=== PATIENT | male | born 1955 | race Caucasian/White ===

== ENCOUNTER → 2018-09-20 08:51 | Outpatient (CLI) | payer OTHER, SELFPAY ==
[2018-09-20 09:37] LABS: Add Manual Diff / Slide Review NO; Basophils Percent Auto 0.5 % (0-2); Eosinophils Percent Auto 5.3 % (2-4); Hematocrit 42.5 % (41-53); Hemoglobin 14.2 g/dL (13.5-17.5); Lymphocytes Percent Auto 22.6 % (25-40); Mean Corpuscular HGB Conc 33.4 % (30-36); Mean Corpuscular Hemoglobin 31.1 PG (26-34); Mean Corpuscular Volume 92.9 fL (80-100); Monocytes Percent Auto 9.6 % (3-14); Neutrophils Absolute Auto 3400 /uL (3000-5900); Platelet Count 234 X10^3/uL (150-400); Red Blood Cell Count 4.57 X10^6/uL (4.5-5.9); Red Cell Distribution Width 13.5 % (11.6-14.8); White Blood Cell Count 5.6 X10^3/uL (4.5-11.0)
--- NOTE | 2018-09-20 09:45 | DI.RAD.S_ITS ---
PROCEDURE: XR SHOULDER RT MIN 2V INDICATIONS: pain TECHNIQUE: 3 views of the shoulder were acquired. COMPARISON: None. FINDINGS: Bones: No fractures or dislocations. No suspicious bony lesions. Visualized ribs appear intact. Soft tissues: No suspicious soft tissue calcifications. IMPRESSION: No acute radiographic findings. If there is continued pain, followup exam or additional imaging such as MRI or CT could be performed for further assessment. Dictated by: Nickie Young M.D. on 09/20/2018 at 10:30 Approved by: Nickie Young M.D. on 09/20/2018 at 10:30
[2018-09-20 10:01] LABS: Alanine Aminotransferase 27 IU/L (21-72); Albumin 4.1 g/dL (3.5-5.0); Albumin Globulin Ratio 1.8 (1.0-2.8); Alkaline Phosphatase 37 U/L (38-126); Aspartate Aminotransferase 20 IU/L (17-59); BUN Creatinine Ratio 14.4 (6-22); Bilirubin Total 0.8 mg/dL (0.2-1.3); Blood Urea Nitrogen 13 mg/dL (9-20); Calcium 8.8 mg/dL (8.4-10.2); Carbon Dioxide 28 mmol/L (22-32); Chloride 104 mmol/L (98-107); Cholesterol 203 mg/dL (140-199); Estimated Glomerular Filt Rate > 60.0 mL/min (>60); Globulin 2.3 g/dL (1.7-4.1); Glucose 98 mg/dL (80-110); HDL Cholesterol 65 mg/dL (40-60); HEMOLYSIS < 15 (0-50); LDL Cholesterol Calculated 128 mg/dL (<100); Potassium 4.7 mmol/L (3.4-5.1); Sodium 141 mmol/L (137-145); Total Protein 6.4 g/dL (6.3-8.2); Triglycerides 48 mg/dL (35-150)
[2018-09-20 10:26] LABS: Prostate Specific Antigen Scrn 1.49 ng/mL (0.1-4.0); Thyroid Stimulating Hormone 0.91 uIU/mL (0.47-4.68)
== END ==
PROVIDERS: Family Provider Family Medicine; PCP Family Medicine; Visit Provider Family Medicine
DX: R05 Cough (principal); M25.519 Pain in unspecified shoulder
CPT/HCPCS: 36415; 73030; 80053; 80061; 84443; 85025; G0103

== ENCOUNTER → 2019-09-04 16:20 | Outpatient (CLI) | payer OTHER, SELFPAY ==
[2019-09-04 16:57] LABS: Add Manual Diff / Slide Review NO; Basophils Absolute Auto 0 /uL (0-100); Basophils Percent Auto 0.5 % (0-2); Eosinophils Absolute Auto 100 /uL (0-450); Eosinophils Percent Auto 1.2 % (2-4); Hematocrit 40.1 % (41-53); Hemoglobin 13.5 g/dL (13.5-17.5); Lymphocytes Absolute Auto 1300 /uL (1100-4500); Lymphocytes Percent Auto 16.1 % (25-40); Mean Corpuscular HGB Conc 33.7 % (30-36); Mean Corpuscular Hemoglobin 31.6 PG (26-34); Mean Corpuscular Volume 93.7 fL (80-100); Monocytes Absolute Auto 700 /uL (0-900); Monocytes Percent Auto 8.6 % (3-14); Neutrophils Absolute Auto 6000 /uL (1500-7000); Neutrophils Percent Auto 73.6 % (50-75); Platelet Count 226 X10^3/uL (150-400); Red Blood Cell Count 4.28 X10^6/uL (4.5-5.9); Red Cell Distribution Width 13.6 % (11.6-14.8); White Blood Cell Count 8.2 X10^3/uL (4.5-11.0)
[2019-09-04 17:09] LABS: Alanine Aminotransferase 27 IU/L (<50); Albumin 4.3 g/dL (3.5-5.0); Albumin Globulin Ratio 1.6 (1.0-2.8); Alkaline Phosphatase 46 U/L (38-126); Aspartate Aminotransferase 29 IU/L (17-59); BUN Creatinine Ratio 17.8 (6-22); Bilirubin Total 1.3 mg/dL (0.2-1.3); Blood Urea Nitrogen 16 mg/dL (9-20); Calcium 9.1 mg/dL (8.4-10.2); Carbon Dioxide 32 mmol/L (22-32); Chloride 100 mmol/L (98-107); Estimated Glomerular Filt Rate > 60.0 mL/min (>60); Globulin 2.7 g/dL (1.7-4.1); Glucose 121 mg/dL (80-110); HEMOLYSIS < 15 (0-50); Potassium 4.2 mmol/L (3.4-5.1); Sodium 137 mmol/L (137-145)
== END ==
PROVIDERS: Family Provider Family Medicine; PCP Family Medicine; Visit Provider Nurse Practitioner
DX: K92.1 Melena (principal)
CPT/HCPCS: 36415; 80053; 85025

== ENCOUNTER → 2019-09-06 08:57 | Outpatient (CLI) | payer OTHER, SELFPAY ==
[2019-09-06 09:32] LABS: Add Manual Diff / Slide Review NO; Basophils Absolute Auto 0 /uL (0-100); Basophils Percent Auto 0.5 % (0-2); Eosinophils Absolute Auto 200 /uL (0-450); Eosinophils Percent Auto 3.4 % (2-4); Hematocrit 39.7 % (41-53); Hemoglobin 13.8 g/dL (13.5-17.5); Lymphocytes Absolute Auto 1200 /uL (1100-4500); Lymphocytes Percent Auto 20.5 % (25-40); Mean Corpuscular HGB Conc 34.7 % (30-36); Mean Corpuscular Hemoglobin 32.3 PG (26-34); Monocytes Absolute Auto 600 /uL (0-900); Monocytes Percent Auto 9.4 % (3-14); Neutrophils Absolute Auto 4000 /uL (1500-7000); Neutrophils Percent Auto 66.2 % (50-75); Platelet Count 248 X10^3/uL (150-400); Red Blood Cell Count 4.27 X10^6/uL (4.5-5.9); Red Cell Distribution Width 13.8 % (11.6-14.8)
[2019-09-06 10:17] LABS: Alanine Aminotransferase 27 IU/L (<50); Albumin 4.3 g/dL (3.5-5.0); Albumin Globulin Ratio 1.9 (1.0-2.8); Alkaline Phosphatase 55 U/L (38-126); Aspartate Aminotransferase 29 IU/L (17-59); BUN Creatinine Ratio 17.8 (6-22); Bilirubin Total 1.1 mg/dL (0.2-1.3); Blood Urea Nitrogen 16 mg/dL (9-20); Calcium 9.2 mg/dL (8.4-10.2); Carbon Dioxide 29 mmol/L (22-32); Chloride 101 mmol/L (98-107); Cholesterol 219 mg/dL (140-199); Estimated Glomerular Filt Rate > 60.0 mL/min (>60); Globulin 2.3 g/dL (1.7-4.1); Glucose 103 mg/dL (80-110); HDL Cholesterol 65 mg/dL (40-60); HEMOLYSIS < 15 (0-50); LDL Cholesterol Calculated 143 mg/dL (<100); Potassium 4.2 mmol/L (3.4-5.1); Sodium 137 mmol/L (137-145); Total Protein 6.6 g/dL (6.3-8.2); Triglycerides 55 mg/dL (35-150)
== END ==
PROVIDERS: PCP Family Medicine; Visit Provider Nurse Practitioner
DX: Z00.00 Encounter for general adult medical examination without abnormal findings (principal); Z13.220 Encounter for screening for lipoid disorders; K92.1 Melena
CPT/HCPCS: 36415; 80053; 80061; 85025; 87045; 87899

== ENCOUNTER 2019-11-02 20:24 | Emergency (ER) | payer OTHER, SELFPAY ==
[2019-11-02 20:37] VITALS: BP 123/69; PULSE 68; RESP 18; TEMP 36.6; O2SAT 97
--- NOTE | 2019-11-02 21:59 | ED_ITS ---
HPI - Allergic Reaction General Chief complaint: Allergic Reaction Stated complaint: rash in pits and other parts of body Time Seen by Provider: 11/02/19 20:35 Source: patient Mode of arrival: Ambulatory Limitations: no limitations History of Present Illness HPI narrative: 64-year-old male nonsmoker with noncontributory medical history presents with a chief complaint of a fairly sudden onset itchy rash on his arms and in his bilateral axillas with some urticaria. He denies any other symptoms such as swelling of tongue, lips or throat. No difficulty swallowing, speaking or any trouble breathing. He denies any history of the same. He has taken no medications to help. He denies any known or suspected triggers such as new food, medications, pets, lotions or other. MD complaint: allergic reaction and hives Onset (ago): hour(s) Exposure: unknown Symptoms: rash and itching Severity: mild Treatment prior to arrival: none Previous Allergic Reaction History: none Related Data Home Medications Medication Instructions Recorded Confirmed ibuprofen 600 mg PO TID #0 11/02/17 09/13/19 Previous Rx's Medication Instructions Recorded prednisone 40 mg PO DAILY 4 Days tab 11/02/19 Allergies Allergy/AdvReac Type Severity Reaction Status Date / Time bee venom protein (honey bee) Allergy Intermediate swelling/hi Verified 09/13/19 15:29 ves Review of Systems Constitutional Constitutional: Denies chills, Denies fatigue, Denies fever(s), Denies frequent falls, Denies lethargy and Denies weakness Eyes Eyes: Denies change in vision, Denies eye discharge, Denies irritation and Denies loss of vision ENT Ears, Nose, Mouth, and Throat: Denies change in voice, Denies dizziness, Denies neck pain, Denies sore throat and Denies throat swelling Cardiovascular Cardiovascular: Denies chest pain, Denies irregular heart rhythm, Denies lightheadedness, Denies palpitations, Denies dyspnea, Denies dyspnea on exertion and Denies orthopnea Respiratory Respiratory: Denies cough, Denies dyspnea, Denies dyspnea on exertion and Denies wheezing Gastrointestinal Gastrointestinal: Denies abdominal pain, Denies change in bowel habits, Denies diarrhea, Denies nausea and Denies vomiting Genitourinary Genitourinary: Denies hematuria, Denies flank pain, Denies urinary incontinence and Denies urinary urgency Musculoskeletal Musculoskeletal: Denies back pain, Denies muscle weakness, Denies neck pain, Denies numbness and Denies tingling Integumentary/Breasts Skin/Breast: Reports pruritus, Denies erythema, Reports rash and Denies wounds Neurologic Neurologic: Denies behavioral changes, Denies confusion, Denies dizziness, Denies frequent falls, Denies loss of vision, Denies numbness, Denies tingling and Denies weakness Psychiatric Psychiatric: Denies anxiety, Denies behavioral changes, Denies confusion, Denies depression, Denies homicidal ideation and Denies suicidal ideation Endocrine Endocrine: Denies fatigue, Denies flushing and Denies palpitations Hematologic/Lymphatic Hematologic/Lymphatic: Denies easy bruising Allergic/Immunologic Allergic/Immunologic: Denies urticaria, Denies throat swelling and Denies wheezing Patient History Medical History Colon polyps (Resolved 06/17/15) Diverticulosis of sigmoid colon (Chronic 06/17/15) Surgical History History of colonoscopy with polypectomy (Resolved 06/17/15) Social History Smoking Status: Former smoker Smoking Status: Former smoker alcohol intake frequency: holidays/special occasions only Substance Use Type: marijuana Exam Narrative Exam Narrative: GENERAL: [64] year old patient appears stated age. Well- nourished, well-developed patient, in mild distress. HEAD: Atraumatic. Normocephalic. EYES: Pupils equal round and reactive. Extraocular motions intact. No scleral icterus. No injection or drainage. ENT: Nose without bleeding, purulent drainage. Throat without erythema, tonsillar hypertrophy or exudate. Airway patent, no swelling of lips/tongue etc. NECK: Trachea midline. Non tender CARDIOVASCULAR: Regular rate and rhythm without murmurs, gallops, or rubs. RESPIRATORY: Clear to auscultation. Breath sounds equal bilaterally. No wheezes, rales, or rhonchi. GASTROINTESTINAL: Abdomen soft, non-tender, nondistended. EXTREMITIES: No edema or joint tenderness. BACK: Nontender without deformity or crepitance. No flank tenderness. NEURO: AOx3. SKIN: hives on arms and axilla B/L, seems to spare trunk, neck, face, and lower extremities. Initial Vital Signs Initial Vital Signs: Vital Signs Temperature 97.9 F 11/02/19 20:37 Pulse Rate 68 11/02/19 20:37 Respiratory Rate 18 11/02/19 20:37 Blood Pressure 123/69 11/02/19 20:37 Pulse Oximetry 97 11/02/19 20:37 Course Orders Ordered: Discontinued Medications Prednisone (Deltasone) 40 mg PO NOW ONE Stop: 11/02/19 22:33 Last Admin: 11/02/19 22:40 Dose: 40 mg Documented by: SEAN Vital Signs Vital signs: Vital Signs - 8 hr 11/02/19 20:37 11/02/19 23:00 Temperature 97.9 F Pulse Rate 68 52 L Respiratory Rate 18 17 Blood Pressure 123/69 129/76 Pulse Oximetry 97 96 MDM - Allergic Reaction MDM Narrative Medical decision making narrative: Nonspecific allergic reaction with unknown trigger. No airway compromise or swelling of face, lips or tongue. Reassuring exam and stable vitals. Patient given 5 day course of prednisone and encouraged to go directly from here to [facility] to get H1 and H2 blockers (refused here). Patient and understand and agree with plan. Return precautions given and questions answered to their apparent satisfaction Discharge Plan Departure Patient Disposition: Home Clinical Impression: Allergic reaction Qualifiers: Encounter type: initial encounter Qualified Code(s): T78.40XA - Allergy, unspecified, initial encounter Discharge Date/Time: 11/02/19 23:01 Instructions: DI for General Allergic Reactions Activity Restrictions/Additional Instructions: *You have been diagnosed with [generalized allergic reaction ] *What to do: *Take medications as directed: your prescription for Prednisone was electronically submitted to [facility] in [place] at your request. Also, please get over the counter histamines including Benadryl, Zyrtec, or Emelyn. As well as an H2 sugar like Pepcid or Zantac. *Follow up with your primary care provider in 2-3 days, call for an appointment. Let them know you were seen in the Emergency Department and that we ask that you be seen in follow up *Return to ER if you should have any new, worsening or concerning symptoms Prescriptions: New prednisone 20 mg tablet 40 mg PO DAILY 4 Days RF: 0 No Action ibuprofen 600 MG tablet 600 mg PO TID Qty: 0 RF: 0 Referrals: Beni Gomez MD [Primary Care Provider] -
[2019-11-02] MEDS: predniSONE 20 MG TABLET 40 MG PO (22:40)
[2019-11-02 23:00] VITALS: BP 129/76; PULSE 52; RESP 17; O2SAT 96
== END 2019-11-02 23:01 | disposition home or self-care (01) ==
PROVIDERS: Emergency Provider Emergency Medicine; PCP Family Medicine
DX: T78.40XA Allergy, unspecified, initial encounter (principal)
CPT/HCPCS: 99282; 99283

== ENCOUNTER 2019-11-05 16:20 | Emergency (ER) | payer OTHER, SELFPAY ==
[2019-11-05 16:45] VITALS: BP 146/75; PULSE 57; RESP 16; TEMP 36.4; O2SAT 97
--- NOTE | 2019-11-05 16:54 | PC.NURSE ---
1620 patient checking in, airway clear, maintaining secretions. does not appear in distress.
[2019-11-05] MEDS: diphenhydrAMINE 25 MG TABLET 50 MG PO (17:31)
[2019-11-05 18:32] VITALS: BP 142/68; PULSE 58; RESP 16; O2SAT 100
--- NOTE | 2019-11-05 18:53 | ED_ITS ---
HPI - Allergic Reaction <ROLANDO Lozano - Last Filed: 11/05/19 19:20> General Chief complaint: Allergic Reaction Stated complaint: THROAT IS GETTING THIGHT HARD TO SWALLOW Time Seen by Provider: 11/05/19 17:12 Source: patient Mode of arrival: Ambulatory Limitations: no limitations History of Present Illness HPI narrative: The patient is a 64-year-old male former smoker with history of hives who presents with a chief complaint of difficulty swallowing. He states that he recently had a breakfast sandwich that he thinks he is allergic to. Incidentally he had the same back for sandwich on Tuesday when he came to the emergency department with hives. He denies any current hives, shortness of breath, swelling of his lips face or tongue or dizziness. He states that he has a tickle in his throat, and feels as though it might be hard to swallow. He has been taking his prednisone, in addition he has been taking Benadryl 50 mg q.4 hours as well as Pepcid Q 4 hours Related Data Home Medications Medication Instructions Recorded Confirmed diphenhydramine HCl 1 cap PO PRN PRN 11/05/19 11/05/19 famotidine 1 tab PO PRN PRN 11/05/19 11/05/19 Previous Rx's Medication Instructions Recorded prednisone 40 mg PO DAILY 4 Days tab 11/02/19 Allergies Allergy/AdvReac Type Severity Reaction Status Date / Time bee venom protein (honey bee) Allergy Intermediate swelling/hi Verified 09/13/19 15:29 ves Review of Systems <ROLANDO Lozano - Last Filed: 11/05/19 19:20> Review of Systems Narrative: GENERAL: Denies chills, fatigue, malaise, fever, sweats. HEENT: See HPI RESPIRATORY: See HPI CARDIOVASCULAR: Denies chest pain, palpitations, orthopnea, edema, GASTROINTESTINAL: Denies nausea, vomiting, abdominal pain, diarrhea, constipation, melena. : Denies dysuria, frequency, incontinence, hematuria, urinary retention. MUSCULOSKELETAL: denies weakness, joint pain, or bony pain SKIN: Denies rash, skin lesions, or other NEUROLOGIC: Denies weakness, headache, numbness, change in speech, confusion, seizures, incoordination. PSYCHIATRIC: No concerning psychosocial issues. 12 point review of systems is negative except for those stated above Patient History <ROLANDO Lozano - Last Filed: 11/05/19 19:20> Medical History Colon polyps (Resolved 06/17/15) Diverticulosis of sigmoid colon (Chronic 06/17/15) Surgical History History of colonoscopy with polypectomy (Resolved 06/17/15) Social History Smoking Status: Former smoker Smoking Status: Former smoker alcohol intake frequency: holidays/special occasions only Substance Use Type: marijuana Exam <ROLNADO Lozano - Last Filed: 11/05/19 19:20> Narrative Exam Narrative: GENERAL: This is a well-nourished, well-developed patient, in no acute distress HEAD: Atraumatic. Normocephalic. No temporal or scalp tenderness. EYES: Pupils equal round and reactive. Extraocular motions intact. No scleral icterus. No injection or drainage. ENT: Nose without bleeding, purulent drainage or septal hematoma. Throat without erythema, tonsillar hypertrophy or exudate. Uvula midline. Airway patent. No swelling of the lips face or tongue. NECK: Trachea midline. No JVD or lymphadenopathy. Supple, nontender, no meningeal signs. CARDIOVASCULAR: Regular rate and rhythm RESPIRATORY: Clear to auscultation. Breath sounds equal bilaterally. No wheezes, rales, or rhonchi. No increased respiratory effort. No accessory muscle use. Speaking full sentences. EXTREMITIES: No clubbing, cyanosis, or edema. No joint tenderness, effusion, or edema noted. BACK: Nontender without deformity or crepitance. No flank tenderness. NEURO: AOx3. SKIN: No rash or erythema on visible skin Initial Vital Signs Initial Vital Signs: Vital Signs Temperature 97.6 F 11/05/19 16:45 Pulse Rate 57 L 11/05/19 16:45 Respiratory Rate 16 11/05/19 16:45 Blood Pressure 146/75 H 11/05/19 16:45 Pulse Oximetry 97 11/05/19 16:45 <Zulma Ruiz MD - Last Filed: 11/05/19 20:05> Initial Vital Signs Initial Vital Signs: Vital Signs Temperature 97.6 F 11/05/19 16:45 Pulse Rate 57 L 11/05/19 16:45 Respiratory Rate 16 11/05/19 16:45 Blood Pressure 146/75 H 11/05/19 16:45 Pulse Oximetry 97 11/05/19 16:45 Course <ROLANDO Lozano - Last Filed: 11/05/19 19:20> Orders Ordered: Discontinued Medications Diphenhydramine HCl (Benadryl) 50 mg PO NOW ONE Stop: 11/05/19 17:26 Last Admin: 11/05/19 17:31 Dose: 50 mg Documented by: CHIVO Vital Signs Vital signs: Vital Signs - 8 hr 11/05/19 16:45 11/05/19 18:32 Temperature 97.6 F Pulse Rate 57 L 58 L Respiratory Rate 16 16 Blood Pressure 146/75 H Blood Pressure [Right Arm] 142/68 H Pulse Oximetry 97 100 <Zulma uRiz MD - Last Filed: 11/05/19 20:05> Orders Ordered: Discontinued Medications Diphenhydramine HCl (Benadryl) 50 mg PO NOW ONE Stop: 11/05/19 17:26 Last Admin: 11/05/19 17:31 Dose: 50 mg Documented by: CHIVO Vital Signs Vital signs: Vital Signs - 8 hr 11/05/19 16:45 11/05/19 18:32 Temperature 97.6 F Pulse Rate 57 L 58 L Respiratory Rate 16 16 Blood Pressure 146/75 H Blood Pressure [Right Arm] 142/68 H Pulse Oximetry 97 100 MDM - Allergic Reaction <ROLANDO Lozano - Last Filed: 11/05/19 19:20> MDM Narrative Medical decision making narrative: The patient is a 64-year-old male who presents with a chief complaint of concern for an allergic reaction. He was h ere on Tuesday diagnosed with hives. He ate the same type of breakfast sandwich today as he did on Tuesday, and felt like he had trouble swallowing. He is given a single dose of Benadryl, and states he feels much improved. He has no signs of anaphylaxis, no signs of hives. I discussed at length continued Benadryl, reducing Pepcid to once or twice a day as needed. Encourage PCP follow-up as scheduled tomorrow. Patient was observed and felt improved ready to go home. Discussed at length the importance of following up with primary care provider, using Benadryl as needed, continuing steroid burst as previously prescribed. Patient has no questions or concerns upon discharge and states understanding of return precautions of any acute concerns as well as follow-up care. Discharge Plan Departure Patient Disposition: Home Clinical Impression: Allergic reaction Qualifiers: Encounter type: initial encounter Qualified Code(s): T78.40XA - Allergy, unspecified, initial encounter Discharge Date/Time: 11/05/19 18:53 Instructions: DI for General Allergic Reactions Activity Restrictions/Additional Instructions: As discussed, you can keep taking Benadryl as needed. Please take the Pepcid once to twice a day not every 4 hours Please come back to the emergency department for any acute concerns such as swelling of her lips face her tongue, difficulty breathing, concern of an acute allergic reaction etcetera Prescriptions: No Action prednisone 20 mg tablet 40 mg PO DAILY 4 Days RF: 0 diphenhydramine HCl 1 cap PO PRN PRN (Reason: Allergic Reaction) RF: 0 famotidine 1 tab PO PRN PRN (Reason: Allergic Reaction) RF: 0 Referrals: Beni Gomez MD [Primary Care Provider] -
== END 2019-11-05 18:53 | disposition home or self-care (01) ==
PROVIDERS: Emergency Provider Nurse Practitioner Family; PCP Family Medicine
DX: T78.40XA Allergy, unspecified, initial encounter (principal)
CPT/HCPCS: 99283

== ENCOUNTER → 2020-09-11 07:05 | Outpatient (CLI) | payer OTHER, SELFPAY ==
[2020-09-11 08:29] LABS: Add Manual Diff / Slide Review NO; Basophils Absolute Auto 0 /uL (0-100); Basophils Percent Auto 0.6 % (0-2); Eosinophils Absolute Auto 300 /uL (0-450); Eosinophils Percent Auto 4.3 % (2-4); Hematocrit 41.5 % (41-53); Hemoglobin 14.1 g/dL (13.5-17.5); Lymphocytes Absolute Auto 1400 /uL (1100-4500); Lymphocytes Percent Auto 22.6 % (25-40); Mean Corpuscular HGB Conc 33.9 % (30-36); Mean Corpuscular Hemoglobin 32.1 PG (26-34); Mean Corpuscular Volume 94.5 fL (80-100); Monocytes Absolute Auto 700 /uL (0-900); Neutrophils Absolute Auto 3700 /uL (1500-7000); Neutrophils Percent Auto 61.5 % (50-75); Platelet Count 230 X10^3/uL (150-400); Red Blood Cell Count 4.39 X10^6/uL (4.5-5.9); Red Cell Distribution Width 13.5 % (11.6-14.8)
[2020-09-11 08:33] LABS: Alanine Aminotransferase 24 IU/L (<50); Albumin 4.4 g/dL (3.5-5.0); Albumin Globulin Ratio 1.7 (1.0-2.8); Alkaline Phosphatase 37 U/L (38-126); Aspartate Aminotransferase 25 IU/L (17-59); BUN Creatinine Ratio 25.5 (6-22); Bilirubin Total 0.5 mg/dL (0.2-1.3); Blood Urea Nitrogen 26 mg/dL (9-20); Calcium 9.3 mg/dL (8.4-10.2); Carbon Dioxide 31 mmol/L (22-32); Chloride 106 mmol/L (98-107); Cholesterol 224 mg/dL (140-199); Estimated Glomerular Filt Rate > 60.0 mL/min (>60); Globulin 2.6 g/dL (1.7-4.1); Glucose 110 mg/dL (80-110); HDL Cholesterol 71 mg/dL (40-60); HEMOLYSIS < 15 (0-50); LDL Cholesterol Calculated 140 mg/dL (<100); Sodium 141 mmol/L (137-145); Triglycerides 66 mg/dL (35-150)
[2020-09-11 09:00] LABS: Prostate Specific Antigen Scrn 1.56 ng/mL (0.1-4.0)
== END ==
PROVIDERS: PCP Family Medicine; Referring Provider Family Medicine; Visit Provider Family Medicine
DX: E78.2 Mixed hyperlipidemia (principal); K57.92 Diverticulitis of intestine, part unspecified, without perforation or abscess without bleeding; Z12.5 Encounter for screening for malignant neoplasm of prostate
CPT/HCPCS: 36415; 80053; 80061; 85025; G0103

== ENCOUNTER → 2021-01-16 09:57 | Outpatient (CLI) | payer OTHER, SELFPAY ==
[2021-01-16 12:05] LABS: COVID19 -Nasal RAPID Negative (Negative)
== END ==
PROVIDERS: PCP Family Medicine; Visit Provider Surgery
DX: Z20.822 Contact with and (suspected) exposure to COVID-19 (principal)
CPT/HCPCS: 87635; C9803

== ENCOUNTER 2021-01-19 09:55 | Day surgery (SDC) | payer OTHER, SELFPAY ==
[2021-01-19] VITALS (7 sets, daily range): BP systolic 123–134; BP diastolic 64–72; PULSE 48–58; RESP 10–18; TEMP 36.4–36.7; O2SAT 95–99; BMI 22.2
--- NOTE | 2021-01-19 | PATH_ITS ---
[facility] Accession Number: [id number] . 01 Material submitted: . PART A: hernia - HERNIA SAC PART B: spermatic cord - SPERMATIC CORD LIPOMA . 02 Diagnosis: A. Hernia Sac, Hernia Repair: Portions of fibroconnective and fibroadipose tissue with a partial mesothelial lining, consistent with hernia sac. Negative for atypia or malignancy. . B. Spermatic Cord Lipoma, Hernia Sac Repair: Portions of mature fibroadipose tissue, consistent with cord lipoma (4.5 x 3.0 x 2.2 cm). MRV 01/22/2021 0933 Local . 02 Electronically signed: . Zulma Morton MD, Pathologist NPI- [id number] . 01 Gross description: . A. The specimen is received in formalin, labeled hernia sac and consists of a 2.5 x 2.0 x 2.0 cm echols-pink fibromembranous fragment of soft tissue. [employer] sections are submitted in cassette A1. B. The specimen is received in formalin, labeled spermatic cord lipoma and consists of a 4.5 x 3.0 x 2.2 cm echols-yellow fragment of adipose tissue which is inked blue and sectioned to reveal echols-yellow, lobulated cut surfaces. [employer] sections are submitted in cassettes B1-B4. (EA:[id number]) /MRV 01/21/2021 1501 Local . 02 Pathologist provided ICD-10: K40.90 . 02 CPT . 950961, [id number] Performed at: [address] [facility], [place], [place] [id number] MD Addy Castrejon MD Phone: [phone] Performed at: [facility] [address] [place] [id number] MD Nury Edwards MD Phone: [phone]
[2021-01-19] MEDS: LACTATED RINGERS 1,000 ML 100 ML IV (10:36)
--- NOTE | 2021-01-19 10:56 | PM.PREOP ---
Pre-operative Note COVID-19 COVID-19 status: Negative Result date/Date tested (Pos, Neg/Pending): 01/16/21 Interval Note History & Physical reviewed/Exam performed by Physician: Yes Changes to H&P: No
[2021-01-19] MEDS: CEFAZOLIN 2 GM/100 ML FROZ.PIGGY IV (11:06)
[2021-01-19] MEDS: BUPIVACAINE 0.25% W/ EPI (PF) 10 ML VIAL 30 ML INJ (11:30)
[2021-01-19] MEDS: BUPIVACAINE LIPOSOME 266 MG/20 ML VIAL INJ (11:31)
--- NOTE | 2021-01-19 12:20 | P.OP_ITS ---
Operative Date/Time/Diagnoses Date of procedure: 01/19/21 Time of procedure: 12:20 Pre-op diagnosis: right inguinal hernia Post-op diagnosis: same (indirect right inguinal hernia, cord lipoma) Procedure & Clinicians Procedure: Open right inguinal hernia repair with mesh, removal of spermatic cord lipoma Same procedure as scheduled: Yes Indications: Symptomatic right inguinal hernia Surgeon: Dana Elmore Yes if Unassisted: Yes Anesthesia Type: General Operative Notes Findings: Indirect right inguinal hernia, cord lipoma Specimen(s): other (hernia sac, cord lipoma) Prosthetic devices, grafts, tissues, transplants, or devices: BARD lightweight polypropelene mesh Estimated Blood Loss (mL): 1 Procedure in detail: The patient was brought into the OR, placed supine on the OR table, and appropriate preoperative antibiotics were given. Sequential compression devices were placed on both legs and turned on. General anesthesia was induced and the patient was intubated with an LMA by the anesthesiologist. The right lower abdomen and groin were prepped and draped in sterile fashion for inguinal incision. A surgical time out was conducted. Local anesthetic was infiltrated into the skin and a 15 blade was used to make an oblique 10cm incisi on two finger breadths superior to the inguinal ligament. Dissection was carried down to through the subcutaneous fat and leann's fascia. Dissection was carried down to the aponeurosis of the external oblique. Using a fresh 15 blade, I opened the aponeurosis after giving generous local anesthetic. There was a moderate indirect inguinal hernia, with an associated spermatic cord lipoma. I dissected the cord lipoma free from the cord and suture ligated it, passing it off the field. I dissected the hernia sac off of the spermatic cord, and suture ligated it with a 3-0 Vicryl. I divided the hernia sac and passed off the field. The stumps of the spermatic cord lipoma and hernia sac were dropped back into the abdomen through the indirect defect. 20 mL of Exparel, and a total of 30 mL of 0.25% Marcaine with epi were used for the entire procedure. The Exparel was infiltrated in the conjoint tendon, and pubic tubercle, avoiding the inguinal ligament shelving edge, and below. A BARD m acroporous inguinal hernia mesh was then brought into the field and shaped to fit the groin. I secured it to the ligaments overlying the pubic tubercle with 2cm overlap, and then secured it to the inguinal ligament inferiorly and the conjoint tendon superiorly with 2-0 PDS suture. I made an opening in the mesh to accommodate the spermatic cord, ensuring it was appropriately sized to avoid strangulation of the cord. Once the mesh was secure, I closed the external oblique aponeurosis with 3-0 Vicryl. I closed the Leann's fascia with 3-0 Vicryl. The remaining local anesthetic was given in the skin and soft tissue. The skin was closed with running 4-0 Monocryl subcuticular stitch. The skin edges were sealed with Dermabond. The patient was awakened from anesthesia and extubated. He tolerated the procedure well. Needle, sponge and instrument counts were correct x 2. The patient was transferred to PACU in stable condition. Complications: none Post-operative Condition: stable Disposition: PACU
[2021-01-19] MEDS: OXYCODONE/ACETAMINOPHEN 5/325 TABLET 1 TAB PO (12:42)
--- NOTE | 2021-01-19 12:50 | SUR.PHASEI ---
PRIOR TO MOVING TO PHASE 2 PT C/O DISCOMFORT, MEDICATED WITH ORAL PAIN PILL, PT TOLERATING DAVID SALAS AND CRACKERS
== END 2021-01-19 13:15 | disposition home or self-care (01) ==
PROVIDERS: PCP Family Medicine; Referring Provider Surgery; Visit Provider Surgery
PROC: (CPT 49505; principal; 2021-01-19 11:15)
DX: K40.90 Unilateral inguinal hernia, without obstruction or gangrene, not specified as recurrent (principal); F41.9 Anxiety disorder, unspecified; D17.6 Benign lipomatous neoplasm of spermatic cord
CPT/HCPCS: 49505; 82962; C1781; C9290; J0690; J1100; J2250; J2405; J2704; J3010

== ENCOUNTER → 2021-03-04 08:19 | Outpatient (CLI) | payer OTHER, SELFPAY ==
[2021-03-04] MEDS: COVID-19 VACC #1, MRNA(MOD) 100 MCG/0.5 ML VIAL IM (08:27)
== END ==
PROVIDERS: PCP Family Medicine; Visit Provider Internal Medicine
DX: Z23 Encounter for immunization (principal)
CPT/HCPCS: 0011A; 91301

== ENCOUNTER → 2021-03-20 08:24 | Outpatient (CLI) | payer OTHER, SELFPAY ==
[2021-03-20 08:59] LABS: Add Manual Diff / Slide Review NO; Basophils Absolute Auto 0 /uL (0-100); Basophils Percent Auto 0.6 % (0-2); Eosinophils Absolute Auto 200 /uL (0-450); Eosinophils Percent Auto 3.2 % (2-4); Hematocrit 42.5 % (41-53); Hemoglobin 14.2 g/dL (13.5-17.5); Lymphocytes Absolute Auto 1100 /uL (1100-4500); Lymphocytes Percent Auto 21.9 % (25-40); Mean Corpuscular HGB Conc 33.3 % (30-36); Mean Corpuscular Hemoglobin 31.2 PG (26-34); Mean Corpuscular Volume 93.6 fL (80-100); Monocytes Absolute Auto 500 /uL (0-900); Monocytes Percent Auto 10.4 % (3-14); Neutrophils Absolute Auto 3200 /uL (1500-7000); Neutrophils Percent Auto 63.9 % (50-75); Platelet Count 234 X10^3/uL (150-400); Red Blood Cell Count 4.54 X10^6/uL (4.5-5.9); Red Cell Distribution Width 13.5 % (11.6-14.8)
[2021-03-20 09:41] LABS: Alanine Aminotransferase 20 IU/L (<50); Albumin 4.2 g/dL (3.5-5.0); Albumin Globulin Ratio 1.8 (1.0-2.8); Alkaline Phosphatase 36 U/L (38-126); Aspartate Aminotransferase 24 IU/L (17-59); BUN Creatinine Ratio 22.5 (6-22); Bilirubin Total 0.9 mg/dL (0.2-1.3); Blood Urea Nitrogen 18 mg/dL (9-20); Calcium 9.3 mg/dL (8.4-10.2); Carbon Dioxide 29 mmol/L (22-32); Chloride 103 mmol/L (98-107); Cholesterol 237 mg/dL (140-199); Estimated Glomerular Filt Rate > 60.0 mL/min (>60); Globulin 2.3 g/dL (1.7-4.1); Glucose 103 mg/dL (80-110); HDL Cholesterol 74 mg/dL (40-60); HEMOLYSIS < 15 (0-50); LDL Cholesterol Calculated 152 mg/dL (<100); Potassium 4.3 mmol/L (3.4-5.1); Sodium 138 mmol/L (137-145); Total Protein 6.5 g/dL (6.3-8.2); Triglycerides 54 mg/dL (35-150)
[2021-03-20 10:09] LABS: Prostate Specific Antigen Scrn 1.51 ng/mL (0.1-4.0)
== END ==
PROVIDERS: PCP Family Medicine; Referring Provider Family Medicine; Visit Provider Family Medicine
DX: E78.2 Mixed hyperlipidemia (principal); Z12.5 Encounter for screening for malignant neoplasm of prostate
CPT/HCPCS: 36415; 80053; 80061; 85025; G0103

== ENCOUNTER → 2021-04-10 08:14 | Outpatient (CLI) | payer OTHER, SELFPAY ==
[2021-04-10] MEDS: COVID-19 VACC #2, MRNA(MOD) 100 MCG/0.5 ML VIAL IM (08:19)
== END ==
PROVIDERS: PCP Family Medicine; Visit Provider Internal Medicine
DX: Z23 Encounter for immunization (principal)
CPT/HCPCS: 0012A; 91301

== ENCOUNTER → 2022-12-17 07:15 | Outpatient (CLI) | payer MEDICARE, OTHER, SELFPAY ==
[2022-12-17 08:02] LABS: Add Manual Diff / Slide Review NO; Basophils Absolute Auto 0 /uL (0-100); Basophils Percent Auto 0.5 % (0-2); Eosinophils Absolute Auto 200 /uL (0-450); Eosinophils Percent Auto 2.5 % (2-4); Hematocrit 41.9 % (41-53); Hemoglobin 14.4 g/dL (13.5-17.5); Lymphocytes Absolute Auto 1400 /uL (1100-4500); Lymphocytes Percent Auto 20.9 % (25-40); Mean Corpuscular HGB Conc 34.4 % (30-36); Mean Corpuscular Hemoglobin 31.8 PG (26-34); Mean Corpuscular Volume 92.4 fL (80-100); Monocytes Absolute Auto 700 /uL (0-900); Neutrophils Absolute Auto 4400 /uL (1500-7000); Neutrophils Percent Auto 66.1 % (50-75); Platelet Count 310 X10^3/uL (150-400); Red Blood Cell Count 4.54 X10^6/uL (4.5-5.9); Red Cell Distribution Width 13.5 % (11.6-14.8); White Blood Cell Count 6.6 X10^3/uL (4.5-11.0)
[2022-12-17 08:11] LABS: Alanine Aminotransferase 22 IU/L (<50); Albumin 4.1 g/dL (3.5-5.0); Albumin Globulin Ratio 1.5 (1.0-2.8); Alkaline Phosphatase 41 U/L (38-126); Aspartate Aminotransferase 23 IU/L (17-59); BUN Creatinine Ratio 21.1 (6-22); Bilirubin Total 0.5 mg/dL (0.2-1.3); Blood Urea Nitrogen 19 mg/dL (9-20); Calcium 8.8 mg/dL (8.4-10.2); Carbon Dioxide 31 mmol/L (22-32); Chloride 101 mmol/L (98-107); Cholesterol 244 mg/dL (140-199); Estimated Glomerular Filt Rate > 60 mL/min (>60); Globulin 2.7 g/dL (1.7-4.1); Glucose 101 mg/dL (80-110); HDL Cholesterol 68 mg/dL (40-60); HEMOLYSIS 17 (0-50); LDL Cholesterol Calculated 160 mg/dL (<100); Potassium 4.7 mmol/L (3.4-5.1); Sodium 137 mmol/L (137-145); Total Protein 6.8 g/dL (6.3-8.2); Triglycerides 82 mg/dL (35-150)
[2022-12-17 08:41] LABS: Prostate Specific Antigen Scrn 2.66 ng/mL (0.1-4.0)
== END ==
PROVIDERS: PCP Family Medicine; Referring Provider Family Medicine; Visit Provider Family Medicine
DX: E78.2 Mixed hyperlipidemia (principal); Z12.5 Encounter for screening for malignant neoplasm of prostate
CPT/HCPCS: 36415; 80053; 80061; 85025; G0103

== ENCOUNTER → 2023-04-09 08:36 | Outpatient (CLI) | payer OTHER, MEDICARE, SELFPAY ==
[2023-04-09 10:20] LABS: Cholesterol 273 mg/dL (140-199); HDL Cholesterol 75 mg/dL (40-60); LDL Cholesterol Calculated 186 mg/dL (<100); Triglycerides 60 mg/dL (35-150)
== END ==
PROVIDERS: PCP Family Medicine; Referring Provider Family Medicine; Visit Provider Family Medicine
DX: E78.2 Mixed hyperlipidemia (principal)
CPT/HCPCS: 36415; 80061

== ENCOUNTER → 2023-07-15 07:02 | Outpatient (CLI) | payer OTHER, MEDICARE, SELFPAY ==
[2023-07-15 09:10] LABS: Cholesterol 242 mg/dL (140-199); HDL Cholesterol 67 mg/dL (40-60); LDL Cholesterol Calculated 162 mg/dL (<100); Triglycerides 66 mg/dL (35-150)
== END ==
PROVIDERS: PCP Family Medicine; Referring Provider Family Medicine; Visit Provider Family Medicine
DX: E78.2 Mixed hyperlipidemia (principal)
CPT/HCPCS: 36415; 80061

== ENCOUNTER → 2023-11-11 07:15 | Outpatient (CLI) | payer OTHER, MEDICARE, SELFPAY ==
[2023-11-11 09:07] LABS: Cholesterol 229 mg/dL (140-199); HDL Cholesterol 69 mg/dL (40-60); LDL Cholesterol Calculated 149 mg/dL (<100); Triglycerides 54 mg/dL (35-150)
== END ==
PROVIDERS: PCP Family Medicine; Referring Provider Family Medicine; Visit Provider Family Medicine
DX: E78.2 Mixed hyperlipidemia (principal)
CPT/HCPCS: 36415; 80061

== ENCOUNTER → 2024-07-17 07:04 | Outpatient (CLI) | payer OTHER, MEDICARE, SELFPAY ==
[2024-07-17 08:08] LABS: Add Manual Diff / Slide Review NO; Basophils Absolute Auto 100 /uL (0-100); Basophils Percent Auto 0.9 % (0-2); Eosinophils Absolute Auto 300 /uL (0-450); Eosinophils Percent Auto 5.3 % (2-4); Hematocrit 42.5 % (41-53); Hemoglobin 14.4 g/dL (13.5-17.5); Lymphocytes Absolute Auto 1500 /uL (1100-4500); Lymphocytes Percent Auto 26.3 % (25-40); Mean Corpuscular HGB Conc 33.9 % (30-36); Mean Corpuscular Hemoglobin 31.3 PG (26-34); Mean Corpuscular Volume 92.2 fL (80-100); Monocytes Absolute Auto 700 /uL (0-900); Monocytes Percent Auto 12.4 % (3-14); Neutrophils Absolute Auto 3100 /uL (1500-7000); Neutrophils Percent Auto 55.1 % (50-75); Platelet Count 232 X10^3/uL (150-400); Red Blood Cell Count 4.61 X10^6/uL (4.5-5.9); White Blood Cell Count 5.6 X10^3/uL (4.5-11.0)
[2024-07-17 08:31] LABS: HEMOLYSIS < 15 (0-50)
[2024-07-17 08:38] LABS: Alanine Aminotransferase 16 IU/L (<50); Albumin Globulin Ratio 1.5 (1.0-2.8); Alkaline Phosphatase 42 U/L (38-126); Aspartate Aminotransferase 22 IU/L (17-59); Bilirubin Total 0.9 mg/dL (0.2-1.3); Blood Urea Nitrogen 20 mg/dL (9-20); Calcium 9.2 mg/dL (8.4-10.2); Carbon Dioxide 29 mmol/L (22-32); Chloride 102 mmol/L (98-107); Cholesterol 243 mg/dL (140-199); Estimated Glomerular Filt Rate > 60 mL/min (>60); Globulin 2.6 g/dL (1.7-4.1); Glucose 100 mg/dL (80-110); HDL Cholesterol 70 mg/dL (40-60); LDL Cholesterol Calculated 160 mg/dL (<100); Potassium 4.7 mmol/L (3.4-5.1); Sodium 136 mmol/L (137-145); Total Protein 6.6 g/dL (6.3-8.2); Triglycerides 64 mg/dL (35-150)
[2024-07-17 09:33] LABS: Prostate Specific Antigen Scrn 1.79 ng/mL (0.1-4.0)
== END ==
PROVIDERS: PCP Family Medicine; Referring Provider Family Medicine; Visit Provider Family Medicine
DX: K21.9 Gastro-esophageal reflux disease without esophagitis (principal); E78.2 Mixed hyperlipidemia; Z12.5 Encounter for screening for malignant neoplasm of prostate
CPT/HCPCS: 36415; 80053; 80061; 85025; G0103

== ENCOUNTER → 2024-12-29 08:58 | Outpatient (CLI) | payer OTHER, MEDICARE, SELFPAY ==
[2024-12-29 09:56] LABS: Add Manual Diff / Slide Review NO; Basophils Absolute Auto 0 /uL (0-100); Basophils Percent Auto 0.7 % (0-2); Eosinophils Absolute Auto 200 /uL (0-450); Eosinophils Percent Auto 4.1 % (2-4); Hematocrit 42.8 % (41-53); Hemoglobin 14.4 g/dL (13.5-17.5); Lymphocytes Absolute Auto 1400 /uL (1100-4500); Lymphocytes Percent Auto 28.1 % (25-40); Mean Corpuscular HGB Conc 33.6 % (30-36); Mean Corpuscular Hemoglobin 31.1 PG (26-34); Mean Corpuscular Volume 92.5 fL (80-100); Monocytes Absolute Auto 500 /uL (0-900); Monocytes Percent Auto 10.8 % (3-14); Neutrophils Absolute Auto 2800 /uL (1500-7000); Neutrophils Percent Auto 56.3 % (50-75); Platelet Count 223 X10^3/uL (150-400); Red Blood Cell Count 4.62 X10^6/uL (4.5-5.9); Red Cell Distribution Width 13.7 % (11.6-14.8); White Blood Cell Count 4.9 X10^3/uL (4.5-11.0)
[2024-12-29 10:12] LABS: Alanine Aminotransferase 21 IU/L (<50); Albumin Globulin Ratio 1.6 (1.0-2.8); Alkaline Phosphatase 40 U/L (38-126); Aspartate Aminotransferase 24 IU/L (17-59); Bilirubin Total 0.9 mg/dL (0.2-1.3); Blood Urea Nitrogen 15 mg/dL (9-20); Calcium 8.8 mg/dL (8.4-10.2); Carbon Dioxide 29 mmol/L (22-32); Chloride 103 mmol/L (98-107); Cholesterol 256 mg/dL (140-199); Estimated Glomerular Filt Rate > 60 mL/min (>60); Globulin 2.5 g/dL (1.7-4.1); Glucose 100 mg/dL (80-110); HDL Cholesterol 71 mg/dL (40-60); HEMOLYSIS < 15 (0-50); LDL Cholesterol Calculated 175 mg/dL (<100); Potassium 4.6 mmol/L (3.4-5.1); Sodium 137 mmol/L (137-145); Total Protein 6.5 g/dL (6.3-8.2); Triglycerides 52 mg/dL (35-150)
== END ==
PROVIDERS: PCP Family Medicine; Referring Provider Family Medicine; Visit Provider Family Medicine
DX: E78.2 Mixed hyperlipidemia (principal)
CPT/HCPCS: 36415; 80053; 80061; 85025

== ENCOUNTER → 2025-02-09 07:53 | Outpatient (CLI) | payer OTHER, MEDICARE, SELFPAY ==
[2025-02-09 09:47] LABS: Alanine Aminotransferase 19 IU/L (<50); Aspartate Aminotransferase 24 IU/L (17-59); Cholesterol 231 mg/dL (140-199); HDL Cholesterol 68 mg/dL (40-60); LDL Cholesterol Calculated 149 mg/dL (<100); Triglycerides 69 mg/dL (35-150)
== END ==
LOC: LAB 07:58
PROVIDERS: PCP Family Medicine; Referring Provider Family Medicine; Visit Provider Family Medicine
DX: B35.1 Tinea unguium (principal); E78.2 Mixed hyperlipidemia
CPT/HCPCS: 36415; 80061; 84450; 84460